=== PATIENT | female | born 1975 | race Caucasian/White ===

== ENCOUNTER 2019-05-14 11:21 | Emergency (ER) | payer OTHER, MEDICAID ==
[~2019-05-14] VITALS: Ht 167.6 cm; Wt 92.1 kg
[~2019-05-14 11:21] MED LIST: GLUMETZA500; PROZAC 10 MG CA10 MG
[2019-05-14] MEDS ORDERED: GLYXAMBI 25 MG1 EACH PO (11:31)
[2019-05-14 11:50] LABS: ABSOLUTE EOSINOPHILS 0.1 thou/uL (0.0-0.7); ABSOLUTE MONOCYTES 0.2 thou/uL (0.0-1.2); ABSOLUTE NEUTROPHILS 1.8 thou/uL (1.6-8.1); BASOPHILS 0.8 %; EOSINOPHILS 1.3 %; HEMATOCRIT 41.7 % (37.0-47.0); HEMOGLOBIN 13.9 gm/dL (12.0-15.0); LYMPHOCYTES 48.2 %; MCH 28.4 pg (26.0-34.0); MCHC 33.4 g/dL (28.0-37.0); MCV 84.9 fL (80.0-100.0); MONOCYTES 4.6 %; MPV 8.6 fl. (7.2-11.1); NUCLEATED RBCS 0 /100WBC; PLATELET COUNT* 159 thou/uL (150-400); POLYS 45.1 %; RBC 4.91 mil/uL (4.20-5.00); RDW-CV 13.1 % (10.5-14.5); WBC 4.1 thou/uL (4.0-11.0)
[2019-05-14 11:52] LABS: URINE BILIRUBIN NEGATIVE (Negative); URINE BLOOD NEGATIVE (Negative); URINE CLARITY CLEAR; URINE COLOR YELLOW; URINE GLUCOSE-RANDOM 3+ (Negative); URINE KETONES TRACE (Negative); URINE LEUKOCYTES-REFLEX NEGATIVE (Negative); URINE NITRITE-REFLEX NEGATIVE (Negative); URINE PROTEIN NEGATIVE (Negative); URINE UROBILINOGEN 0.2 E.U./dl (0.2-1.0)
[2019-05-14 11:57] LABS: ANION GAP 13 mmol/L (7-16); BUN 8 mg/dL (7-18); CALCIUM 8.6 mg/dL (8.5-10.1); CHLORIDE 100 mmol/L (98-107); CO2 24 mmol/L (21-32); CREATININE 1.1 mg/dL (0.6-1.3); GLUCOSE 308 mg/dL (70-99); POTASSIUM 3.5 mmol/L (3.5-5.1); SODIUM 137 mmol/L (136-145)
[2019-05-14] MEDS ORDERED: KEFLEX500 M1 PO (12:04)
[2019-05-14] MEDS ORDERED: CIPROFLOXIN HC2.5 M1 OTIC (12:04)
[2019-05-14 12:06] LABS: ALKALINE PHOSPHATASE 126 U/L (46-116); SGOT 45 U/L (15-37); SGPT 53 U/L (30-65); TOTAL BILIRUBIN 0.6 mg/dL (<0.1-1.0); TOTAL PROTEIN 6.9 g/dL (6.4-8.2); TROPONIN-I LEVEL <0.06 ng/mL (<0.06)
[2019-05-14 12:09] VITALS: BP 150/79
== END 2019-05-14 12:09 | disposition home or self-care (01) ==
LOC: M.ERS 11:21
PROVIDERS: Physician Assistant
DX: H66.92 Otitis media, unspecified, left ear (principal); H60.92 Unspecified otitis externa, left ear; E11.65 Type 2 diabetes mellitus with hyperglycemia; Z88.1 Allergy status to other antibiotic agents; Z88.6 Allergy status to analgesic agent; Z90.710 Acquired absence of both cervix and uterus

== ENCOUNTER 2019-07-14 20:24 | Emergency (ER) | payer OTHER, MEDICAID ==
[~2019-07-14] VITALS: Ht 167.6 cm; Wt 89.8 kg
[~2019-07-14 20:24] MED LIST changes: +CIPROFLOXIN HC2.5 M1 OTIC; +GLYXAMBI 25 MG1 EACH PO; +KEFLEX500 M1 PO
[2019-07-14 20:54] LABS: ABSOLUTE EOSINOPHILS 0.1 thou/uL (0.0-0.7); ABSOLUTE LYMPHOCYTES 2.3 thou/uL (0.8-5.3); ABSOLUTE MONOCYTES 0.3 thou/uL (0.0-1.2); ABSOLUTE NEUTROPHILS 1.4 thou/uL (1.6-8.1); BASOPHILS 0.5 %; EOSINOPHILS 2.7 %; HEMATOCRIT 38.8 % (37.0-47.0); HEMOGLOBIN 13.5 gm/dL (12.0-15.0); LYMPHOCYTES 55.8 %; MCH 28.8 pg (26.0-34.0); MCHC 34.7 g/dL (28.0-37.0); MCV 82.9 fL (80.0-100.0); MONOCYTES 6.4 %; MPV 8.4 fl. (7.2-11.1); NUCLEATED RBCS 0 /100WBC; PLATELET COUNT* 161 thou/uL (150-400); POLYS 34.6 %; RBC 4.68 mil/uL (4.20-5.00); RDW-CV 12.8 % (10.5-14.5); WBC 4.1 thou/uL (4.0-11.0)
[2019-07-14 21:00] LABS: URINE BILIRUBIN NEGATIVE (Negative); URINE BLOOD NEGATIVE (Negative); URINE CLARITY CLEAR; URINE COLOR YELLOW; URINE GLUCOSE-RANDOM 1+ (Negative); URINE KETONES NEGATIVE (Negative); URINE LEUKOCYTES-REFLEX NEGATIVE (Negative); URINE NITRITE-REFLEX NEGATIVE (Negative); URINE PROTEIN TRACE (Negative); URINE SPECIFIC GRAVITY >= 1.030 (1.005-1.030); URINE UROBILINOGEN 0.2 E.U./dl (0.2-1.0)
[2019-07-14 21:01] LABS: CALCIUM 9.1 mg/dL (8.5-10.1); POTASSIUM 3.6 mmol/L (3.5-5.1)
[2019-07-14 21:12] LABS: ALBUMIN 3.6 g/dL (3.4-5.0); TOTAL BILIRUBIN 0.3 mg/dL (<0.1-1.0); TOTAL PROTEIN 6.5 g/dL (6.4-8.2)
[2019-07-14 23:40] VITALS: BP 130/82
--- NOTE | 2019-07-15 17:16 | EKG ---
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
== END 2019-07-14 23:40 | disposition home or self-care (01) ==
LOC: M.ERS 20:24
PROVIDERS: Emergency Medicine
DX: R07.89 Other chest pain (principal); E11.9 Type 2 diabetes mellitus without complications; Z90.710 Acquired absence of both cervix and uterus; Z85.41 Personal history of malignant neoplasm of cervix uteri; Z88.1 Allergy status to other antibiotic agents; Z88.6 Allergy status to analgesic agent

== ENCOUNTER → 2019-07-30 | Outpatient (CLI) | payer OTHER, MEDICAID ==
--- NOTE | 2019-07-30 13:41 | 2DMMODE ---
[place] [address] 2 D/M-MODE ECHOCARDIOGRAM Name: ERA MACIAS Room: [facility]#: [id number] Admission: 07/30/19 Attend Phys: Dave Reece, Discharge: Date of : 73 Date of Service: 07/30/19 1341 Report #: [id number] THIS REPORT FOR: //name// APPROVED REPORT Study performed: 07/30/2019 10:14:20 EXAM: Comprehensive 2D, Doppler, and color-flow Echocardiogram Patient Location: Out-Patient BSA: 2.00 HR: 76 bpm BP: 112/60 mmHg Other Information Study Quality: Good Indications Dyspnea 2D Dimensions IVSd: 9.38 (7-11mm) LVOT Diam: 20.07 (18-24mm) LVDd: 42.47 mm PWd: 8.37 (7-11mm) Ascending Ao: 27.55 (22-36mm) LVDs: 23.24 (25-40mm) Aortic Root: 24.84 mm Volumes Left Atrial Volume (Systole) LA ESV Index: 16.40 mL/m2 Aortic Valve AoV Peak Leonardo.: 1.36 m/s AO Peak Gr.: 7.36 mmHg LVOT Max P.45 mmHg AO Mean Gr.: 4.29 mmHg LVOT Mean P.84 mmHg LVOT Max V: 1.17 m/s AO V2 VTI: 26.17 cm LVOT Mean V: 0.78 m/s ILYA (VTI): 2.88 cm2 LVOT V1 VTI: 23.87 cm Mitral Valve E/A Ratio: 1.10 MV Decel. Time: 192.69 ms MV E Max Leonardo.: 0.56 m/s MV PHT: 55.88 ms MVA (PHT): 3.94 [place] [address] 2 D/M-MODE ECHOCARDIOGRAM Name: ERA MACIAS Room: [facility]#: [id number] Admission: 07/30/19 Attend Phys: Dave Reece, Discharge: Date of : 73 Date of Service: 07/30/19 1341 Report #: [id number] TDI E/Lateral E': 3.73 E/Medial E': 6.22 Medial E' Leonardo.: 0.09 m/s Lateral E' Leonardo.: 0.15 m/s Pulmonary Valve PV Peak Leonardo.: 0.92 m/s PV Peak Gr.: 3.41 mmHg Tricuspid Valve RAP Estimate: 5.00 mmHg TR Peak Gr.: 18.83 mmHg RVSP: 23.83 mmHg PA Pressure: 23.83 mmHg Left Ventricle The left ventricle is normal size. There is normal LV segmental wall motion. There is normal left ventricular wall thickness. Left ventricular systolic function is normal. The left ventricular ejection fraction is within the normal range. LVEF is 60%. The left ventricular diastolic function is normal. Right Ventricle The right ventricle is normal size. The right ventricular systolic function is normal. Atria The left atrium size is normal. The right atrium size is normal. Aortic Valve The aortic valve is normal in structure. No aortic regurgitation is present. There is no aortic valvular stenosis. Mitral Valve The mitral valve is normal in structure. There is no mitral valve regurgitation noted. No evidence of mitral valve stenosis. Tricuspid Valve The tricuspid valve is normal in structure. Mild tricuspid regurgitation. Pulmonic Valve The pulmonary valve is normal in structure. Mild pulmonic [place]itation[place] [address] 2 D/M-MODE ECHOCARDIOGRAM Name: ERA MACIAS Room: [facility]#: [id number] Admission: 07/30/19 Attend Phys: Dave Reece, Discharge: Date of : 73 Date of Service: 07/30/19 1341 Report #: [id number] The aortic root is normal in size. IVC is normal in size and collapses >50% with inspiration. Pericardium There is no pericardial effusion. <Conclusion> The left ventricle is normal size. There is normal left ventricular wall thickness. Left ventricular systolic function is normal. The left ventricular ejection fraction is within the normal range. LVEF is 60%. The left ventricular diastolic function is normal. The right ventricle is normal size. The left atrium size is normal. The aortic valve is normal in structure. The mitral valve is normal in structure. The tricuspid valve is normal in structure. IVC is normal in size and collapses >50% with inspiration. There is no pericardial effusion. There is normal LV segmental wall motion. <ELECTRONICALLY SIGNED> By: Arnulfo Handy MD, FACC 07/30/19 1341 1341 1341 Arnulfo Handy MD, FACC /INF
--- NOTE | 2019-07-31 08:47 | CARDNUC ---
[place] [address] CARDIAC NUCLEAR IMAGING REPORT Name: ERA MACIAS Room: [facility]#: [id number] Admission: 07/30/19 Attend Phys: Dave Reece, Discharge: Date of : 73 Date of Service: 07/31/19 0847 Report #: [id number] THIS REPORT FOR: //name// APPROVED REPORT Imaging Protocol: Rest Tc-99m/Stress Tc-99m 1 day Study performed: 07/30/2019 09:24:21 Indication: Chest pain, Abnormal EKG, Dyspnea Patient Location: Out-Patient Stress Tech: Lorie Rawls Stress Nurse: Megha Sewell RN NM Tech:SYDNEY Thomas Ht: 5 ft 6 in Wt: 199 lbs BSA: 2.00 m2 BMI: 32.11 Medical History Medical History: HTN Medications: lisinopril Allergies: amoxicillin, aspirin Cardiac Risk Factors: Age, FHX of CAD Exercise History: Physically active Resting Data Rest SPECT myocardial perfusion imaging was performed in supine position 30 minutes following the intravenous injection of 11.0 mCi of Tc-99m Sestamibi. Time of rest injection: 0800 Date: 07/30/2019 The images were gated to evaluate regional wall motion and calculate left ventricular ejection fraction. Administration Route: IV Administration Site: Right AC Exercise Stress At peak stress, the patient was injected intravenously with 33.2mCi of Tc-99m Sestamibi. Time of stress injection: 934 Date: 07/30/2019 Administration Route: IV Administration Site: Right AC Gated Stress SPECT was performed 30 minutes after stress injection. The images were gated to evaluate regional wall motion and calculate left ventricular ejection fraction. Prone [place] [address] CARDIAC NUCLEAR IMAGING REPORT Name: ERA MACIAS Room: [facility]#: [id number] Admission: 07/30/19 Attend Phys: Dave Reece, Discharge: Date of : 73 Date of Service: 07/31/19 0847 Report #: [id number] Stress Test Details Stress Test: Exercise stress testing was performed using a Arúl protocol. HR Max Heart Rate (APMHR): 175 bpm Resting HR: 57 bpm Target HR (85% APMHR): 148 bpm Max HR Achieved: 157 bpm % of APMHR: 89 Recovery HR: 90 bpm HR response to stress: Normal HR response to stress BP Resting BP: 114/73 mmHg Max BP: 218/108 mmHg Recovery BP: 126/70 mmHg BP response to stress: Abnormal hypertensive response to stress. ECG Resting ECG: Sinus Rhythm Stress ECG: Sinus Tachycardia ST Change: None Arrhythmia: None Recovery ECG: Sinus Rhythm Recovery ST Change: None Recovery Arrhythmia: None Clinical Reason for Termination: Dyspnea Exercise duration: 11 min 56 sec Exercise capacity: 13.48 METs Functional Aerobic Impairment 89% The patient exhibited excellent exercise tolerance. Nurse Comments pt states that she was just starting to get chest pain at the end of the test. Resolved with rest Stress ECG Conclusion Baseline 12-lead EKG shows sinus rhythm without significant ST or T wave abnormality. EKGs obtained during and post exercise showed sinus rhythm and sinus tachycardia with no significant ST or T wave changes when compared to baseline. There were no stress-induced [place] [address] CARDIAC NUCLEAR IMAGING REPORT Name: ERA MACIAS Room: [facility]#: [id number] Admission: 07/30/19 Attend Phys: Dave Reece, Discharge: Date of : 73 Date of Service: 07/31/19 0847 Report #: [id number] Study: Good Artifact: No artifact Study Data At rest, the left ventricular ejection fraction was 70%.. Post stress, the left ventricular ejection was 74%.. TID = 0.71. Perfusion Myocardial perfusion images obtained at rest and post exercise showed uniform uptake of the radioisotope felt the myocardium without defect. Wall Motion Normal left ventricular wall motion. Nuclear Conclusion ECG Findings: negative for ischemia Clinical Findings: equivocal Nuclear Findings: negative for ischemia Exercise Capacity: normal Left Ventricular Function: normal Risk Study: low Patient had mild chest discomfort at peak exercise there does not appear to be related to ischemia and light of EKG and myocardial perfusion imaging findings. Perfusion images show no defect to suggest infarct or ischemia. Left ventricular systolic function is normal on gated studies. This is a low risk study. <Conclusion> Baseline 12-lead EKG shows sinus rhythm without significant ST or T wave abnormality. EKGs obtained during and post exercise showed sinus rhythm and sinus tachycardia with no significant ST or T wave changes when compared to baseline. There were no stress-induced arrhythmias. <ELECTRONICALLY SIGNED> By: Dave Reece MD, FACC 07/31/1948 0847 Dave Reece MD, FACC /INF
== END ==
LOC: M.CRD 07-16 15:36 → M.NUC 07:39 → M.CRD 11:00
DX: I08.8 Other rheumatic multiple valve diseases (principal); R94.31 Abnormal electrocardiogram [ECG] [EKG]; I10 Essential (primary) hypertension

== ENCOUNTER → 2019-08-28 | Outpatient (CLI) | payer OTHER, MEDICAID ==
--- NOTE | 2019-08-29 12:52 | SLEEP ---
[address] [address] SLEEP STUDY REPORT Name: ERA MACIAS Room: [facility]#: [id number] Admission: 08/28/19 Attend Phys: ARIEL Brown Discharge: Date of : 73 Report #: [id number] THIS REPORT FOR: //name// CC: Hermelindo Garcia NP This study has been reviewed in its entirety by a board certified sleep specialist DATE OF SERVICE: 08/28/2019 SLEEP STUDY REFERRING PHYSICIAN: Brandy Garcia NP The patient is 44 years old who weighs 200 pounds with a BMI of 32.3. The patient's [place] score was 18. The patient underwent a split night study performed at [facility]. During the night study, the patient spent 438 minutes in bed and slept for 191 minutes with a low sleep efficiency of 43%. Sleep latency was 19.9 minutes with a REM latency of 160 minutes. Sleep architecture showed increased stage 1 and stage 2 sleep, normal slow wave and reduced REM sleep, which was 4.7% of the total sleep time. During the initial diagnostic portion of the study, the patient slept for 94.5 minutes. During that time, there was 1 obstructive apnea, no mixed or central apneas and 26 hypopneas. The patient's apnea-hypopnea index of 17.1 per hour. REM sleep was not seen during the diagnostic portion of the study. Supine AHI 12 per hour. EKG monitoring revealed an average heart rate of 67 beats per minute. No sustained arrhythmias observed. PLMS were seen at an index of 68 per hour and 20 per hour caused EEG arousals. The PLM index did significantly improve to only 13 per hour while the patient slept on CPAP. Nocturnal oximetry study revealed an average oxygen saturation of 96% with a lowest of 86%. Only 0.1 minutes were spent in oxygen saturation less than 89%. The patient met the criteria for CPAP initiation. It was started at 7 cm water and the patient remained at the same pressure. The patient slept for 95 minutes including 8 minutes of lateral REM sleep. The patient's AHI was reduced to 0 per hour and oxygen saturation remained above 95%. [place] [address] SLEEP STUDY REPORT Name: ERA MACIAS Room: [facility]#: [id number] Admission: 08/28/19 Attend Phys: ARIEL Brown Discharge: Date of : 73 Report #: [id number] IMPRESSION: 1. Moderate sleep apnea-hypopnea syndrome at an AHI of 17.1 per hour. Absence of REM sleep during the diagnostic portion can underestimate the severity of sleep apnea. 2. No clinically significant nocturnal hypoxia. 3. Severe periodic limb movements, which did improve from an index of 68 per hour to 13 per hour while the patient slept on CPAP. This does not need to be treated unless the patient has symptoms of restless legs during the day. 4. Reduced sleep efficiency resulting from sleep maintenance insomnia. RECOMMENDATIONS: 1. CPAP at 7 cm water completely eliminated the patient's sleep apnea and should be used on a nightly basis. 2. Follow up in 4-6 weeks to assess compliance with CPAP and to document clinical improvement. 3. Weight loss is advised. 4. Avoid GRAVEL SCREENER depressants. 5. Cautioned regarding driving until symptoms of sleep apnea resolve with the use of CPAP. 6. If patient's insomnia persists despite effective use of CPAP, then it should be evaluated and treated according to the etiology. <ELECTRONICALLY SIGNED> By: Myles Peck MD 08/29/19 1252 0831 0849Myles Peck MD /nt
== END ==
LOC: M.SLEEPLAB 20:42
DX: G47.33 Obstructive sleep apnea (adult) (pediatric) (principal); G47.30 Sleep apnea, unspecified